=== PATIENT | female | born 1985 | race Hispanic/Latino ===

== ENCOUNTER 2016-06-06 19:10 | Emergency (ER) | payer SELFPAY ==
[~2016-06-06] VITALS: Ht 157.5 cm; Wt 70.5 kg
[~2016-06-06 19:10] MED LIST: Docusate Sodium PO; FERR-74 PO; Ibuprofen PO; PREN1TAB80 PO
[2016-06-06 19:15] VITALS: BP 112/79; PULSE 78; RESP 16; O2SAT 100
--- NOTE | 2016-06-06 20:43 | ED.REPORT ---
HPI-Headache Date of Service Jun 06, 2016 ED Provider: Armond Srivastava MD This is a 30 year old female presenting to the emergency department complaining of headache that began today morning upon awakening. Pt states she woke up from sleep with the headache. Excedrin provided temporary relief. Headache has been intermittent and begins at the neck and radiates around the head and is described as throbbing. Reports nausea and sensitivity to movement. Denies trauma to head. Denies photophobia, sensitivity to sound, or vomiting. States this headache is more intense compared to headaches in the past. Nursing Notes Stated Complaint: MIGRAINE/NECK PAIN Chief Complaint: Headache Nursing Notes Reviewed: Yes Allergies: Coded Allergies: hydrocodone (Verified Adverse Reaction, Intermediate, ANXIOUSNESS WITH VICODIN, 06/06/16) Scheduled Ferrous Sulfate (Feosol) 325 Mg Tablet 325 MG PO DAILY Scheduled PRN ([Docusate Sodium]) 100 MG CAPSULE 100 MG PO BID PRN PRN For Constipation ([Ibuprofen]) 600 MG TABLET 600 MG PO Q6H PRN PRN For Mild Pain Miscellaneous Medications Vits W-Ca,Fe,FA(<1Mg) ( Vitamins) 1 Each Tablet 1 EACH PO General Time Seen by MD: 20:41 Chief Complaint Migraine headache Hx Obtained From: Patient Arrived By: Walk-in Sudden in Onset?: Yes Onset Occurred: 9 - 12 hours ago Symptom Duration: Since onset Severity: Current: Moderate Pertinent Negative: Pt denies other symptoms Recent Healthcare: No recent doctor visit, No recent hospitalization Similar Sx Previous: No Past Medical History Past Medical History Migraines Past Surgical History Denies Smoking History Never Smoker Ambulatory Status Independent Review of Systems Constitutional: Denies: Chills, Fever GI: Reports: Nausea, Denies: Abdominal pain, Vomiting Neurologic: Reports: Headache, Denies: Change LOC, Lightheaded, Numbness, Weakness Complete sys rev & neg: except as marked. Physical Exam Initial Vital Signs Vital Signs (First) Date Time Temp Pulse Resp B/P Pulse Ox O2 Delivery O2 Flow Rate FiO2 06/06/16 19:15 36.1 78 16 112/79 100 Room Air Initial VS: Reviewed ENT: Mucous membranes moist, Conjunctiva normal, No scleral icterus Respiratory: Breath sounds normal, Clear to auscultation, No respiratory distress Cardiovascular: Regular rate & rhythm, Heart sounds normal, Intact distal pulses Abdomen / GI: Soft, Non-tender, No guarding, No rebound, No distention Extremities: Vascular intact, Neuro intact, No swelling, No tenderness Skin: Warm, Dry, No cyanosis Psychiatric: Mood/affect normal, Behavior normal, Normal thought content General/Constitutional: Awake, Alert Head / Eyes: Normocephalic, PERRL, EOMI, No periorbital swelling, No photophobia, Conjunctiva NL Neck: Supple, No meningismus, Full range of motion, No swelling, Non-tender, No masses Neurologic: Oriented X3, Speech NL, No motor deficits, No sensory deficits, CN II - XII intact, Cerebellar NL Re-Eval/Medical Decision Med Decision/Clinical Course In summary, the patient is a generally healthy female with past medical history significant for migraine headaches, who presents with headache. Our primary and secondary assessment reveals an awake, alert patient in no acute distress. Hemodynamically stable and afebrile. Neurologic exam. Urine test negative. Suspect the patient's headache represents a migraine or tension type headache. Considered other causes of headache to include: Subdural hemorrhage, subarachnoid hemorrhage, BUSINESS AGENT tumor, meningitis, encephalitis, venous sinus thrombosis, dissection, temporal arteritis, intracranial hypertension ( psuedotumor cerebri), sinusitis or cervicalgia, although these are less likely based on the history, exam findings as noted above. Based on this, I feel that imaging would be low yield and is not warranted at this time. Discussed the risks and benefits of this with the patient who is in agreement. Also discussed with the patient at length that if symptoms change, worsen, or persist, should return to the ER for reevaluation. They understand and agree with the plan. Given the patient's workup, feel they are safe for discharge. The patient was given the below medications for symptom control. Given: 30 IV Toradol 1 L saline 25 Benadryl 10 Reglan Thereafter patient reported significant improvement. At this time I feel that she is appropriate for discharge home. Follow precautions were reviewed in detail and she was discharged in good condition. Counseled Regarding: Diagnosis, Need for follow-up, When/why to return to ED Discharge & Departure Impression: Primary Impression: Migraine Migraine type: without aura Status migrainosus presence: without status migrainosus Intractability: not intractable Qualified Code: G43.009 - Migraine without aura, not intractable, without status migrainosus Disposition: Home Discharge Condition All VS Reviewed: Yes Condition: Stable Patient Instructions: Migraine Headache (DC) Additional Instructions: Thank you for seeking care at emergency room. It is difficult for us to make definitive diagnoses in the ED but we believe that you are experiencing a migraine headache today. Our primary goal today in the ED was to evaluate you for any life-threatening conditions. Your evaluation was reassuring. You should follow-up with your primary doctor in the next week. You should return to the ED immediately if you develop fevers, vomiting, cough, shortness of breath, chest pain, lightheadedness, weakness or any other concerning signs or symptoms. Thank you for letting us partake in your care today. Referrals: Bacilio Verde MD (PCP) Scribe Attestation Portions of this note were transcribed by Jennifer Marino. I, Dr. Srivastava personally performed the history, physical exam and medical decision-making; I reviewed and confirmed the accuracy of the information in the transcribed note. Signed by: anai Carter. 06/06/2016, 23:30. Armond Srivastava MD Jun 06, 2016 20:42 JENNIFER MARINO Jun 06, 2016 20:47
[2016-06-06] MEDS ORDERED: 0.9% Sodium Chloride 1,000 ML IV ONE (21:01)
[2016-06-06] MEDS ORDERED: MetoCLOpramide 5 mg/mL 2 mL Inj IVPUSH ONE (21:05)
[2016-06-06 22:02] VITALS: BP 132/62
== END 2016-06-06 22:02 | disposition home or self-care (01) ==
LOC: SED 19:10
DX: G43.009 Migraine without aura, not intractable, without status migrainosus (principal); Z88.6 Allergy status to analgesic agent
CPT/HCPCS: 81025; 96361; 96374; 96375; 99284; J1200; J2765; J7030